=== PATIENT | female | born 1970 | race Caucasian/White ===

== ENCOUNTER 2021-03-03 14:34 | Emergency (ER) | payer BC, SELFPAY ==
[2021-03-03 14:58] VITALS: BP 139/84; PULSE 98; RESP 20; TEMP 37.5; O2SAT 99
--- NOTE | 2021-03-03 14:58 | ED.GENADULT ---
HPI - General Adult General Chief complaint: Upper Respiratory Infection Stated complaint: fever/congestion/sore throat/cough/body aches Source: patient Mode of arrival: ambulatory Limitations: no limitations History of Present Illness HPI narrative: 50 y/o female. PMHx HTN. Presents to [facility] today with acute complaints of SEBASTIAN, body aches, nasal congestion, sore throat, fever at home, and cough for the past 3 days. No chest pain, palpitations, dyspnea, edema. No abdominal pain, N/V/D. Client had been sent home from work this past Wednesday with fever, she is concerned for potential Covid 19 viral illness. Client is w/o additional acute c/o illness upon exam. Related Data Home Medications Medication Instructions Recorded Confirmed albuterol sulfate INHALATION 03/03/21 diltiazem HCl PO 03/03/21 losartan 03/03/21 Allergies Allergy/AdvReac Type Severity Reaction Status Date / Time No Known Allergies Allergy Verified 03/03/21 14:57 Review of Systems Review of Systems: CONSTITUTIONAL: Positive fever, chills, sweats. EYES: Denies visual changes, redness, discharge. ENT: Positive rhinorrhea, congestion, sore throat. No otalgia. CARDIOVASCULAR: Denies chest pain, palpitations, edema. RESPIRATORY: Positive cough. Denies dyspnea, wheezing. GASTROINTESTINAL: Denies abdominal pain, nausea, vomiting, diarrhea. GENITOURINARY: Denies dysuria, hematuria, abnormal discharge SKIN: Denies rash or itching. MUSCULOSKELETAL: Denies acute back pain, joint pain, or myalgia. NEUROLOGIC: Denies numbness, or focal weakness. PSYCHIATRIC: Denies anxiety or depression. All systems reviewed & are unremarkable except as noted in HPI and below Exam Narrative: GENERAL: This is a well-nourished, well-developed adult, in no apparent distress. HEAD: normocephalic, atraumatic. EYES: PERRL. Sclera clear/white. EARS: External ears normal, auditory canals clear and without drainage, TMs normal. NOSE: External nose normal. Positive Rhinorrhea, no obstruction, nares patent. THROAT: Mucous membranes moist, posterior pharynx erythematous. No exudates. NECK: Neck supple, non-tender without lymphadenopathy, masses or thyromegaly. CARDIOVASCULAR: Regular rate and rhythm without murmurs, gallops, or rubs. RESPIRATORY: Breath sounds equal bilaterally. Upper airway Rhonchi, cleared with cough. No wheezes, rales. GASTROINTESTINAL: Abdomen soft, non-tender, nondistended. Bowel sounds are active. No guarding. SKIN: warm, intact with no suspicious lesions or rash, good texture and turgor. NEURO: No focal neurologic deficits. EXTREMITIES: Negative. Course Course Emergency Course: -50 y/o female. -PMHx HTN. -Concern for Covid, multiple viral Sx type illnesses. -Proceed with Rapid Covid, Influenza, & Strep testing. Medical Decision Making MDM Narrative Medical decision making narrative: -Afebrile, non-tachycardic, no hypoxemia. -Hemodynamically stable, no respiratory distress. -COVID POSITIVE. -Rapid Strep & Influenza Negative. -Azithromycin and steroid regimen, cover realistic potential for development of secondary complications to include Covid PNA. -Resume all additional OTC remedies for symptomatic relief. -Resume self Isolation and Quarantine procedures per CDC & [facility] Guidelines. -PCP F/U when officially quarantine released. -ER with emergent health status changes. Pt agrees. Differential Diagnosis Differential Diagnosis: Differential Diagnosis: Consideration of the following conditions may be warranted for the presenting problem, they are not final diagnoses: upper respiratory infection, otitis media, sinusitis, RSV viral infection, bronchitis, pharyngitis, Streptococcal sore throat, COVID-19, and other. Medical Records Medical records reviewed: Yes I reviewed the external patient's medical records. Lab Data Lab results reviewed: Yes I reviewed the patient's lab results. Critical Care T
== END 2021-03-03 15:27 | disposition home or self-care (01) ==
PROVIDERS: Emergency Provider Nurse Practitioner Adult Health
DX: U07.1 COVID-19 (principal)
CPT/HCPCS: 87081; 87426; 87804; 87880; 99213; C9803; G0463

== ENCOUNTER 2021-10-04 11:04 | Emergency (ER) | payer BC, SELFPAY ==
[2021-10-04 12:37] VITALS: BP 150/93; PULSE 89; RESP 16; TEMP 36.6; O2SAT 99
--- NOTE | 2021-10-04 12:56 | ED.GENADULT ---
HPI - General Adult General Chief complaint: Nausea/Vomiting/Diarrhea Stated complaint: Pain in bottom Source: patient Mode of arrival: ambulatory Limitations: no limitations History of Present Illness HPI narrative: Patient presents for evaluation of rectal pain since yesterday. She believes her symptoms are related to hemorrhoid. She had hemorrhoids following delivery of her daughter many years ago, and this feels similar. She denies any rectal bleeding or discharge from her anus. No recent constipation or diarrhea. Last bowel movement was this morning, solid in consistency. She did experience pain with that bowel movement. She states that her pain is worse while standing. She stands for prolonged periods of time so is unable to attend work today. Denies any receptive anal intercourse. No hx of herpes. No additional complaints or concerns. Related Data Home Medications Medication Instructions Recorded Confirmed albuterol sulfate 2 puff INHALATION PRN PRN 03/03/21 10/04/21 diltiazem HCl 120 mg PO DAILY 03/03/21 10/04/21 losartan 50 mg PO DAILY 03/03/21 10/04/21 Allergies Allergy/AdvReac Type Severity Reaction Status Date / Time No Known Allergies Allergy Verified 10/04/21 12:35 Review of Systems Review of Systems: CONSTITUTIONAL: Denies fever, chills, or sweats. EYES: Denies visual changes, redness, or discharge. ENT: Denies rhinorrhea, congestion, sore throat, or otalgia. CARDIOVASCULAR: Denies chest pain, palpitations, or edema. RESPIRATORY: Denies cough or dyspnea. GASTROINTESTINAL: Denies abdominal pain, nausea, vomiting, or diarrhea. Reports rectal pain. GENITOURINARY: Denies dysuria or hematuria. SKIN: Denies rash or itching. MUSCULOSKELETAL: Denies back pain, joint pain, or myalgia. NEUROLOGIC: Denies headache, numbness, dizziness, or weakness. PSYCHIATRIC: Denies anxiety or depression. [facility] Past Medical History Medical History (Updated 10/04/21 @ 13:39 by GUS Sommers, SANGEETHA) Asthma Hypertension Surgical History Surgical History History of History of cholecystectomy Family History Family History (Updated 10/04/21 @ 12:58 by GUS Sommers, ) Mother No pertinent past medical history Social History Social History Smoking status: Never smoker Alcohol intake: current Alcohol use details: rare social use Substance use: never Living arrangements: with family Gender identity (if verbalized by the patient): Female Sexual Orientation (if Verbalized by the Patient): Straight or Heterosexual Spiritual care concerns: No Exam Narrative: GENERAL: Well-appearing, well-nourished, and in no acute distress. HEAD: Normocephalic, atraumatic. EYES: PERRLA and EOMI. ENT: Nares clear, no rhinorrhea or epistaxis. Mucous membranes moist. Oropharynx without tonsillar hypertrophy exudate or other lesions. Bilateral TMs pearly roy nonbulging NECK: Supple. No adenopathy or masses. No carotid bruits or JVD CHEST: Clear to auscultation. No respiratory distress. No wheezes rales or rhonchi HEART: Regular rate and rhythm. No murmur heard. Normal peripheral pulses. ABDOMEN: Soft, nontender, nondistended, normal active bowel sounds. EXTREMITIES: Normal range of motion. No edema. GENITAL: There is an approximately 1cm external hemorrhoid. There is a 3mm external thrombosed hemorrhoid adjacent to that SKIN: Warm, dry, no rash. NEURO: No focal deficits. Alert and oriented x3. PSYCH: Normal mood and affect. Course Course Emergency Course: This is a 51-year-old female who presented with complaints of rectal pain that she thought was related to hemorrhoids. She was evaluated in company of female animal attendant. She did not have evidence of hemorrhoids on exam. I did offer to incise the thrombosed hemorrhoid. She declined. Advised to use sitz baths
== END 2021-10-04 13:50 | disposition home or self-care (01) ==
PROVIDERS: Emergency Provider Nurse Practitioner
DX: K64.4 Residual hemorrhoidal skin tags (principal); J45.909 Unspecified asthma, uncomplicated; I10 Essential (primary) hypertension
CPT/HCPCS: 99213; G0463

== ENCOUNTER 2022-01-15 09:17 | Outpatient (CLI) | payer BC, SELFPAY ==
--- NOTE | ~2022-01-15 | US_ITS ---
US right upper quadrant INDICATION: Right upper quadrant pain. Abnormal enzymes. PROCEDURE: Realtime right upper abdominal ultrasound. COMPARISON: No prior studies for comparison. FINDINGS: The pancreas is normal without focal mass or pancreatic ductal dilation. Liver echotexture is normal without focal mass or intrahepatic biliary dilatation. There is normal directional flow i n the portal vein. Gallbladder is surgically absent. Common bile duct measures 4 mm. IMPRESSION: 1: Normal limited abdominal ultrasound. Reviewed, dictated and finalized at location A.
--- NOTE | ~2022-01-15 | US_ITS ---
EXAMINATION: US thyroid DATE: 01/15/2022 11:05 INDICATION: Diffuse nontoxic goiter. TECHNIQUE: Multiple ultrasound images of the thyroid were obtained. COMPARISON: None. FINDINGS: The right thyroid lobe measures 6.0 x 2.7 x 1.7 cm. The left thyroid lobe measures 7.3 x 2.5 x 2.7 c m. The thyroid demonstrates coarsened echotexture. Vascularity is normal. In the left thyroid lobe, t here is a 4.7 cm predominantly solid, isoechoic, wider than tall nodule with ill-defined margin witho ut echogenic foci (TI-RADS TR3). IMPRESSION: 1. Thyroid nodule. Ultrasound-guided fine-needle aspiration is recommended. Reviewed, dictated and finalized at location B.
== END 2022-01-15 09:18 | disposition home or self-care (01) ==
PROVIDERS: PCP Family Medicine
DX: R74.8 Abnormal levels of other serum enzymes (principal); E04.0 Nontoxic diffuse goiter
CPT/HCPCS: 76536; 76705

== ENCOUNTER 2022-03-20 00:17 | Day surgery (SDC) | payer BC, SELFPAY ==
[2022-03-20 09:17] VITALS: BMI 32.3
[2022-03-20 09:19] VITALS: BP 167/85; PULSE 86; RESP 17; TEMP 36.3; O2SAT 97
[2022-03-20] MEDS: LACTATED RINGERS 1,000 ML 150 ML IV CONT (09:28)
--- NOTE | 2022-03-20 09:54 | PM.HPGS ---
History of Present Illness History of Present Illness Consent: Risks, benefits, and alternatives have been discussed and questions answered. Patient agrees to proceed with procedure. Chief complaint: atypical chest pain; neoplasm screening Narrative: Mehreen Bajwa is a 51 year old female with atypical chest pain and gerd on antacids otc, also intermittent blood in stools. Never had scopes Review of Systems Constitutional: Constitutional: Denies headache(s) and Denies weakness Eyes: Eyes: Denies blurry vision ENT: Reports Normal hearing present, Denies headache(s) and Denies neck pain Cardiovascular: Cardiovascular: Denies chest pain and Denies dyspnea Respiratory: Respiratory: Denies dyspnea Gastrointestinal: Gastrointestinal: Reports no additional gastrointestinal complaints Genitourinary: Genitourinary: Denies dysuria Musculoskeletal: Musculoskeletal: Denies neck pain Integumentary/Breasts: Skin/Breast: Denies dry skin Neurologic: Reports Normal hearing present, Denies headache(s) and Denies weakness Psychiatric: Psychiatric: Denies anxiety Endocrine: Endocrine: Denies change in body appearance Hematologic/Lymphatic: Hematologic/Lymphatic: Denies easy bleeding Allergic/Immunologic: Allergic/Immunologic: Denies urticaria PMFSH Past Medical History Medical History (Updated 01/02/22 @ 16:01 by ANDRZEJ Cuellar) Asthma BRBPR (bright red blood per rectum) Encounter for screening colonoscopy Heartburn Hypertension Obese Surgical History Surgical History History of History of cholecystectomy Family History Family History Mother No pertinent past medical history Social History Social History Smoking packs per day: 1 Smoking cigarettes per day: 20.0 Years smoked: 25 Smoking pack-years: 25.00 Smoking status: Former smoker Tobacco type: cigarettes Alcohol intake: current Alcohol use details: 4 times per year Substance use: never Substance use type: does not use Living arrangements: with family Gender identity (if verbalized by the patient): Female Sexual Orientation (if Verbalized by the Patient): Straight or Heterosexual Spiritual care concerns: No Meds Home Medications and Allergies Home Medications Medication Instructions Recorded Confirmed Type albuterol sulfate 90 mcg/actuation 2 puff inhalation PRN PRN 03/03/21 03/12/22 History aerosol inhaler Shortness Of Breath diltiazem HCl 120 mg 120 mg PO DAILY 03/03/21 03/12/22 History capsule,extended release 24 hr losartan 50 mg tablet 100 mg PO DAILY 03/03/21 03/12/22 History sodium sul 1.479 gram-potas ch See Rx Instructions PO PER PKG DIR 01/16/22 03/12/22 Rx 0.188 gram-magnes sul 0.225 gram #24 tabs tablet (Sutab) Allergies Allergy/AdvReac Type Severity Reaction Status Date / Time No Known Allergies Allergy Verified 03/12/22 12:10 Vital Signs Vital Signs - 24 hr 03/20/22 09:19 Temperature 97.3 F L Pulse Rate 86 Respiratory Rate 17 Blood Pressure 167/85 H Pulse Oximetry 97 Oxygen Delivery Room Air Exam Const: General: comfortable and no acute distress HENMT: General nose exam: Normal nares present Eyes: General: appearance normal, both eyes and all related structures Neck: Neck: no JVD Resp: Auscultation: clear to auscultation bilaterally Cardio: Rate: regular rate Rhythm: regular rhythm GI: Inspection: non-distended GI Palp: Yes Soft to palpation Skin: General skin exam: normal color Neuro: General: gait normal Speech: normal speech Extrem: General: normal to inspection Psych: Mental Status: mental status grossly normal Assessment and Plan Assessment and plan (1) BRBPR (bright red blood per rectum): Code(s): K62.5 - Hemorrhage of anus and rectum Status: Acute
--- NOTE | 2022-03-20 09:55 | P.PNAN_ITS ---
Anes - Initial Pre Proc Eval Procedure: Operation Date: 03/20/22 10:30 Proposed Procedures p Esophagogastroduodenoscopy & Screening Colonoscopy - Rigo Hernandez MD Date/Time: 03/20/22 09:55 Surgeon: Rigo Bonilla MD Pre Op Diagnosis: atypical chest pain; neoplasm screening Patient Data Age: 51 Gender: F Height: 1.63 m Weight: 85.3 kg Last Vital Signs Temp 97.3 F L 03/20/22 09:19 Pulse 86 03/20/22 09:19 Resp 17 03/20/22 09:19 BP 167/85 H 03/20/22 09:19 Pulse Ox 97 03/20/22 09:19 O2 Del Method Room Air 03/20/22 09:19 Allergies Allergy/AdvReac Type Severity Reaction Status Date / Time No Known Allergies Allergy Verified 03/12/22 12:10 Home Medications Medication Instructions Recorded Confirmed Type albuterol sulfate 90 mcg/actuation 2 puff inhalation PRN PRN 03/03/21 03/12/22 History aerosol inhaler Shortness Of Breath diltiazem HCl 120 mg 120 mg PO DAILY 03/03/21 03/12/22 History capsule,extended release 24 hr losartan 50 mg tablet 100 mg PO DAILY 03/03/21 03/12/22 History sodium sul 1.479 gram-potas ch See Rx Instructions PO PER PKG DIR 01/16/22 03/12/22 Rx 0.188 gram-magnes sul 0.225 gram #24 tabs tablet (Sutab) Patient hx anesthesia problems: none Family hx anesthesia problems: none Results Review: All pre-operative results and documents have been reviewed as part of the pre- operative evaluation. [facility] Past Medical History Medical History (Updated 01/02/22 @ 16:01 by ANDRZEJ Cuellar) Asthma BRBPR (bright red blood per rectum) Encounter for screening colonoscopy Heartburn Hypertension Obese Surgical History Surgical History History of History of cholecystectomy Family History Family History Mother No pertinent past medical history Social History Social History Smoking packs per day: 1 Smoking cigarettes per day: 20.0 Years smoked: 25 Smoking pack-years: 25.00 Smoking status: Former smoker Tobacco type: cigarettes Alcohol intake: current Alcohol use details: 4 times per year Substance use: never Substance use type: does not use Living arrangements: with family Gender identity (if verbalized by the patient): Female Sexual Orientation (if Verbalized by the Patient): Straight or Heterosexual Spiritual care concerns: No Anes - Eval Final PreProcedure Day of Procedure 03/20/22 09:55 Patient weight: obese Heart: regular rate and rhythm Lungs: clear to auscultation Airway: Mallampati scale class II Neurological: alert and oriented Last oral intake: >/= 8 hours ASA classification: II Emergent: no Anesthetic plan: proceed Anesthesia type and monitoring: general GIVS and standard monitoring Results Review: All pre-operative results and documents have been reviewed as part of the pre- operative evaluation. Informed Consent: The patient's anesthetic plan and its attendant risks and benefits were discussed with the patient/family/POA. Questions were solicited and answers provided to the satisfaction o
--- NOTE | 2022-03-20 10:23 | SUR.OPER ---
egd ended at 1007, colonoscopy started [id number]
[2022-03-20 10:26] VITALS: BP 123/81; PULSE 77; RESP 22; O2SAT 97
[2022-03-20 10:36] VITALS: BP 125/84; PULSE 70; RESP 16; O2SAT 98
[2022-03-20 10:46] VITALS: BP 124/93; PULSE 77; RESP 20; O2SAT 99
== END 2022-03-20 11:05 | disposition home or self-care (01) ==
PROVIDERS: PCP Family Medicine; Visit Provider Internal Medicine Gastroenterology
PROC: 0DJ08ZZ Inspection of Upper Intestinal Tract, Via Natural or Artificial Opening Endoscopic (ICD-10-PCS; CPT 43235; principal; 2022-03-20 10:30)
DX: Z12.11 Encounter for screening for malignant neoplasm of colon (principal); K44.9 Diaphragmatic hernia without obstruction or gangrene; K21.9 Gastro-esophageal reflux disease without esophagitis; R07.89 Other chest pain; K57.30 Diverticulosis of large intestine without perforation or abscess without bleeding; K64.8 Other hemorrhoids; J45.909 Unspecified asthma, uncomplicated; I10 Essential (primary) hypertension; Z90.49 Acquired absence of other specified parts of digestive tract; Z87.891 Personal history of nicotine dependence; E66.9 Obesity, unspecified; Z68.32 Body mass index [BMI] 32.0-32.9, adult; Z79.51 Long term (current) use of inhaled steroids; R12 Heartburn
CPT/HCPCS: 43239; 45378; 88305; J2704; J7120

== ENCOUNTER → 2023-06-11 11:20 | Outpatient (CLI) | payer BC, SELFPAY ==
--- NOTE | ~2023-06-11 | US_ITS ---
EXAMINATION: US thyroid DATE: 06/11/2023 11:40 INDICATION: Neoplasm of uncertain behavior of thyroid gland. TECHNIQUE: Multiple ultrasound images of the thyroid were obtained. COMPARISON: Ultrasound 01/15/2022 FINDINGS: The right thyroid lobe measures 6.2 x 2.8 x 1.8 cm. The left thyroid lobe measures 6.4 x 2.5 x 2.7 c m. In the right thyroid lobe, there is a 1.3 cm solid, hypoechoic, wider than tall nodule with lobul ated margin without echogenic foci (TI-RADS TR4). In the right thyroid lobe, there is a 9 mm solid, h ypoechoic, wider than tall nodule with smooth margin without echogenic foci (TR4). In the left thyroi d lobe, there is a 3.4 cm predominantly solid, isoechoic, wider than tall nodule with smooth margin w ithout echogenic foci (TR3), stable from 01/15/22. In the left thyroid lobe, there is a 2.0 cm predomi nantly solid, isoechoic, wider than tall nodule with ill-defined margin without echogenic foci (TR3). IMPRESSION: 1. Multinodular goiter. Ultrasound-guided fine needle aspiration of the 3.4 cm left thyroid nodule is recommended. Reviewed, dictated and finalized at location E. CHIEF MARSHAL
== END ==
DX: D44.0 Neoplasm of uncertain behavior of thyroid gland (principal); E04.2 Nontoxic multinodular goiter
CPT/HCPCS: 76536

== ENCOUNTER 2023-09-23 09:09 | Outpatient (CLI) | payer BC, SELFPAY ==
--- NOTE | 2023-10-01 16:34 | WPDHOMESLEEP ---
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 She has difficulty shutting her mind down to go to sleep. She is on rotating shifts and has gained 30 lb. She cannot stay asleep after getting to sleep. At times she wakes up gasping for air. She has taken [id number] sleep medication and 1 prescription medication but nothing helps her stay asleep. She is tired of feeling tired. There is a family history of sleep issues, both of her brothers have sleep apnea. She occasionally awakens from sleep feeling short of breath. She frequently awakens at night with heartburn, belching or coughing. She occasionally snores, occasionally snores loudly enough that others complain. She occasionally wakes up gasping for breath during the night. She occasionally has breathing problems at night reported to her by others. She occasionally sweats excessively at night. She frequently notices her heart pounding or beating irregularly at night. She occasionally falls asleep during the day, rarely falls asleep involuntarily, never falls asleep while driving. She does not have loss of muscle tone with strong emotion. She does not feel paralyzed on waking or falling asleep. She rarely has vivid dreamlike scenes on waking or falling asleep. She does not feel afraid to go to sleep. She does not have nightmares. She rarely recalls her dreams. She frequently has racing thoughts. She does not have feelings of sadness or depression. She frequently feels anxious. She does not have muscular tension or notice parts of her body jerking. She does not kick at night. She does not have crawling or aching feelings in her legs. She does not have any kind of leg pain at night. She does not have morning jaw pain. She occasionally grinds her teeth at night. She frequently is bothered by pain during the day, occasionally is awakened by pain at night. She frequently wakes up feeling stiff in the morning with sore achy muscles. She has fatigue, palpitations, and she takes antacids regularly. Her normal bedtime varies due to her rotating schedule. It often takes between 30 and 90 minutes for her to fall asleep. She typically wakes up between 2 and 4 times after going to sleep. On average, she stays awake between 10 and 30 minutes when she awakens during sleep. while awake, she goes to the bathroom and tries to return to sleep with variable success. Her wake time also varies. Her shifts rotate every 3 weeks. She does not generally take naps. She does not feel refreshed after a 10-15 minute nap. She is sleepy for 3 hours after waking. Habits: Tobacco: stopped 8 years ago Caffeine: 1-2 cups of coffee per day Alcohol: none Recreational substances: none [facility] Past Medical History Medical History Asthma BRBPR (bright red blood per rectum) Encounter for screening colonoscopy Heartburn Hypertension Obese Surgical History Surgical History History of History of cholecystectomy Family History Family History Mother No pertinent past medical history Hypertension Father Hypertension Heart disease Grandparent Cerebrovascular accident Heart disease Grandparent Heart disease Social History Social History Smoking packs per day: 1 Smoking cigarettes per day: 20.0 Years smoked: 25 Smoking pack-years: 25.00 Smok
[2023-10-01 16:39] VITALS: BMI 37.8
== END 2023-09-24 11:15 | disposition home or self-care (01) ==
LOC: ANHCSM 09:10
PROVIDERS: Visit Provider Internal Medicine Cardiovascular Disease
DX: R06.83 Snoring (principal); R40.0 Somnolence; G47.33 Obstructive sleep apnea (adult) (pediatric); G47.26 Circadian rhythm sleep disorder, shift work type
CPT/HCPCS: 95800

== ENCOUNTER 2023-10-27 12:33 | Outpatient (CLI) | payer BC, SELFPAY ==
--- NOTE | ~2023-10-27 | US_ITS ---
EXAMINATION: US FNA w image guidance DATE: 10/27/2023 13:31 INDICATION: Nontoxic single thyroid nodule TECHNIQUE: A time-out was performed to verify the patient's name, date of , and procedure to be performed . The procedure and its benefits and risks were discussed with the patient. Risks specifically discus sed included bleeding and infection. The patient understood the risks and agreed to proceed. The neck was prepped and draped in the usual sterile manner. 3 mL 1% lidocaine was used for local anesthesia . 6 passes were made with a 25G needle into the lesion. Appropriate needle location was documented with continuous sonographic guidance. A sterile bandage was applied. There were no immediate compli cations. FINDINGS: Grayscale ultrasound images demonstrate biopsy needles advanced into a 3.4 cm TI RADS 4 left thyroid nodule. IMPRESSION: 1. Successful ultrasound-guided fine needle aspiration of the 3.4 cm TI RADS 4 left thyroid nodule o f concern. Reviewed, dictated and finalized at location A. IMPRESSION: 1. Successful ultrasound-guided fine needle aspiration of the 3.4 cm TI RADS 4 left thyroid nodule of concern.
== END 2023-10-27 12:34 | disposition home or self-care (01) ==
PROVIDERS: Visit Provider Otolaryngology
DX: E04.1 Nontoxic single thyroid nodule (principal)
CPT/HCPCS: 10005; 88172; 88173; 88305

== ENCOUNTER 2023-12-31 12:35 | Outpatient (CLI) | payer BC, SELFPAY ==
--- NOTE | ~2023-12-31 | XR_ITS ---
EXAMINATION: XR chest 2V 12/31/2023 14:07 INDICATION: Shortness of breath PROCEDURE: 2 view chest COMPARISON: No prior studies for comparison. FINDINGS: The lungs are clear. The cardiomediastinal silhouette is within normal limits. There are no pleural effusions. There is no pneumothorax suspected. There are cholecystectomy clips. IMPRESSION: 1: NO ACUTE CARDIOPULMONARY DISEASE. Reviewed, dictated and finalized at location B.
--- NOTE | 2024-01-03 10:17 | WPDPFTINT ---
PFT Procedure Performed PFT Procedure Performed Plethysmography (Lung Vol) Diffusing Cap (DLCO) Flow Vol Loop Spirometry w/o Bronchodil PFT Interpretation Lung volumes were measured with the body plethysmography method. Lung volumes are unremarkable. Spirometry showed normal expiratory flow rates and a normal FEV1 to FVC ratio of 76%. No post bronchodilator study was conducted. Lung diffusion capacity is within the normal range at 75% predicted. The flow volume loop is unremarkable. Impression: Spirometry, lung volumes, and lung diffusion capacity all within the normal range.
== END 2023-12-31 12:36 | disposition home or self-care (01) ==
DX: R06.02 Shortness of breath (principal)
CPT/HCPCS: 71046; 94375; 94726; 94729